=== PATIENT | male | born 1970 | race Caucasian/White ===

== ENCOUNTER 2017-09-24 09:35 | Emergency (ER) | payer OTHER ==
[~2017-09-24] VITALS: Ht 172.7 cm; Wt 69.4 kg
[2017-09-24 09:37] VITALS: Ht 172.7 cm; Wt 69.4 kg
[2017-09-24] MEDS ORDERED: CLOT24CR4 TOP (11:17)
[2017-09-24] MEDS ORDERED: DOXY100T20 PO (11:17)
--- NOTE | 2017-09-24 11:20 | RADRPT ---
PROCEDURE: Right fourth digit series CLINICAL INDICATION: Pain TECHNIQUE: AP oblique and lateral views COMPARISON: None available FINDINGS: Mild soft tissue swelling of the right fourth digit is present. No acute fractures or dislocations a re present. Mild flexion deformity is noted at the second through fifth distal interphalangeal joint s. Normal mineralization and remaining joint spaces are normal. No radiodense foreign bodies are pre sent. IMPRESSION: 1. No acute fractures or dislocations. 2. Soft tissue swelling of the right fourth digit 3. Mild right second through fifth distal interphalangeal joint flexion deformities. RPTAT: HDC .Cammy Doyle MD, MD Date Time Electronically viewed and signed by .Cammy Doyle MD, on 09/24/2017 11:19 .C/
--- NOTE | 2017-09-24 11:21 | ERD ---
ER Documentation Chief Complaint Chief Complaint Complains of right toe pain x 2 days HPI This 39-year-old male complains of pain in the right fourth toe for last 2 days. Denies any history of trauma. Denies any inciting events. ROS All systems reviewed and are negative except as per history of present illness. Medications Home Meds Active Scripts Doxycycline Hyclate* (Doxycycline Hyclate*) 100 Mg Tablet.dr, 100 MG PO BID for 10 Days, TAB Prov:LETHA OLIVEROS MD 09/24/17 Clotrimazole* (Lotrimin* AF) 1% - 24 Gm Cream.gm., 1 APPLIC TOP BID for 10 Days , TUB Prov:LETHA OLIVEROS MD 09/24/17 Allergies Allergies: Coded Allergies: No Known Allergy (Unverified , 09/24/17) PMhx/Soc History of Surgery: No Anesthesia Reaction: No Hx Neurological Disorder: No Hx Respiratory Disorders: No Hx Cardiac Disorders: No Hx Psychiatric Problems: No Hx Miscellaneous Medical Probl: No Hx Alcohol Use: Yes Hx Substance Use: No Hx Tobacco Use: No Smoking Status: Never smoker Physical Exam Vitals Vital Signs Date Time Temp Pulse Resp B/P Pulse Ox O2 Delivery O2 Flow Rate FiO2 09/24/17 09:37 97.2 68 20 117/80 97 Physical Exam Const: [] Alert, [id number]. Head: Atraumatic Eyes: Normal Conjunctiva ENT: Normal External Ears, Nose and Mouth. Neck: Full range of motion..~ No meningismus. Resp: Clear to auscultation bilaterally Cardio: Regular rate and rhythm, no murmurs Abd: Soft, non tender, non distended. Normal bowel sounds Skin: No petechiae or rashes Back: No midline or flank tenderness Ext: No cyanosis, or edema. There is some maceration and a blister on the lateral aspect of the right fourth toe. There is some mild swelling and some redness without bony tenderness or deformities. There is no evidence of deficits or restricted range of motion. Cap refill is less than 2 seconds. Neur: Awake and alert Psych: Normal Mood and Affect Procedures/MDM X-ray right fourth toe 2V Interpreted by me: Bones: [No fracture] Joints: [No dislocation] Foreign body: [None] impression-normal right fourth toe x-ray She presents with what appears to be an infected blister in the webspace of lateral to the right fourth toe. There is some irritation or possible early infection. May be result of tinea. Procedure note-the right toe webspace was prepped with Betadine. The wound or blister was debrided and unroofed using forceps. Patient tolerated procedure well and the wound was dressed. She will be treated with doxycycline and Lotrimin, instructions for wound care in 2 days for wound check and return precautions for worsening redness, fevers, new symptoms. Symptoms do not suggest osteomyelitis, fracture, dislocation, tenosynovitis, additional emergent causes of presenting complaints. Departure Diagnosis: Primary Impression: Blister Additional Impression: Cellulitis Site of cellulitis: unspecified site Qualified Code: L03.90 - Cellulitis, unspecified cellulitis site Condition: Stable Patient Instructions: Cellulitis, Blister Additional Instructions: Cheque otro vez con villareal doctor primario en el proximo arnett or regresa para mas o nueva simptomas. LETHA OLIVEROS MD Sep 24, 2017 11:21
== END 2017-09-24 12:05 | disposition home or self-care (01) ==
LOC: FTE 09:35
DX: L03.031 Cellulitis of right toe (principal); R23.8 Other skin changes
CPT/HCPCS: 73660; Z7502